=== PATIENT | female | born 1960 | race Caucasian/White ===

== ENCOUNTER → 2017-12-29 | Outpatient (CLI) | payer OTHER | LOC: M RAD 07:09 | DX: Z12.31 Encounter for screening mammogram for malignant neoplasm of breast (principal) | CPT/HCPCS: 77067 ==

== ENCOUNTER → 2018-04-23 | Outpatient (REF) | payer OTHER ==
[2018-04-23 16:45] LABS: FREE T4 0.94 NG/DL (0.76-1.46)
== END ==
LOC: M LAB REF 15:49
DX: E06.3 Autoimmune thyroiditis (principal)

== ENCOUNTER → 2019-01-26 | Outpatient (CLI) | payer OTHER ==
[~2019-01-26] MED LIST: ACET500C PO; CLAR5CHW OR; GLUC500T3 PO; IBUP400T PO; IBUP600T PO; POTA20TA2 OR; YAZ3TAB2 PO
--- NOTE | 2019-01-26 19:13 | REPMRS ---
Patient History The patient states she has not had a clinical breast exam in over a year. Family history of unknown cancer at age 74 in father, breast cancer at age 92 in paternal grandmother, breast cancer at age 38 in maternal cousin. Taking hormonal contraceptives for 3 years. Patient has but, is willing to pay for 3D. Digital Mammo Screening Bilat: January 26, 2019 - Exam #: [id number] Bilateral CC and MLO view(s) were taken. Technologist: Natasha Rice, Technologist Prior study comparison: December 29, 2017, bilateral digital mammo screening bilat performed at [facility]. June 13, 2016, bilateral digital mammo screening bilat performed at [facility]. February 06, 2014, bilateral bilat screen digital mammo, performed at [facility] ([facility]). FINDINGS: The breast tissue is heterogeneously dense. This may lower the sensitivity of mammography. There is a moderate amount of heterogeneously dense fibroglandular tissue which is fairly symmetric. There is no interval development of dominant mass, architectural distortion, or grouped microcalcification typical of malignancy. There has been no change in the appearance of the mammogram from the prior studies. 3-D tomosynthesis shows no additional findings. Assessment: BI-RADS/ACR category 1 mammogram. Negative Mammogram. Recommendation Routine screening mammogram of both breasts in 1 year (for women over age 40). This patient's Lifetime Breast Cancer RIsk is estimated at 10.2 %. This mammogram was interpreted with the aid of an FDA-approved computer-aided dectection system. Electronically Signed By: Tom Sherwood MD 01/26/19 308
== END ==
LOC: M RAD 12:45
PROVIDERS: ATTEND Internal Medicine
DX: Z12.31 Encounter for screening mammogram for malignant neoplasm of breast (principal); Z80.3 Family history of malignant neoplasm of breast

== ENCOUNTER → 2019-12-28 | Outpatient (CLI) | payer OTHER | LOC: EDSTATUS 10:30 → M LABSMTC 10:36 | PROVIDERS: ATTEND Pediatrics | DX: Z03.818 Encounter for observation for suspected exposure to other biological agents ruled out (principal); Z11.59 Encounter for screening for other viral diseases ==

== ENCOUNTER → 2020-03-19 | Outpatient (CLI) | payer OTHER | LOC: M LABSMTC 13:13 | PROVIDERS: ATTEND Pediatrics | DX: Z20.828 Contact with and (suspected) exposure to other viral communicable diseases (principal) ==

== ENCOUNTER 2020-06-11 09:38 | Outpatient (RCR) | payer SELFPAY | END 2020-06-14 | LOC: M LABSMTC 09:38 | PROVIDERS: ATTEND Pediatrics | DX: Z20.828 Contact with and (suspected) exposure to other viral communicable diseases (principal) ==

== ENCOUNTER → 2020-07-12 | Outpatient (CLI) | payer SELFPAY | LOC: M LABSMTC 09:34 | PROVIDERS: ATTEND Pediatrics | DX: Z20.822 Contact with and (suspected) exposure to COVID-19 (principal) ==

== ENCOUNTER → 2020-07-17 | Outpatient (CLI) | payer OTHER ==
[2020-07-17 15:06] LABS: BLOOD UREA NITROGEN 18 MG/DL (7-18); CALCIUM LEVEL 10.1 MG/DL (8.8-10.2); CARBON DIOXIDE LEVEL 32 MEQ/L (21-32); CHLORIDE LEVEL 102 MEQ/L (98-107); CREATININE FOR GFR 0.76 MG/DL (0.55-1.30); FREE T4 1.25 NG/DL (0.76-1.46); GLOMERULAR FILTRATION RATE > 60.0 (>45); GLUCOSE, FASTING 94 MG/DL (70-100); POTASSIUM SERUM 4.7 MEQ/L (3.5-5.1); SODIUM LEVEL 138 MEQ/L (136-145)
[2020-07-17 15:10] LABS: FOLATE 10.3 NG/ML (>5.4)
[2020-07-23 16:08] LABS: VITAMIN B1 LEVEL WHOLE BLOOD 101.9 nmol/L (66.5-200.0); VITAMIN E(ALPHA TOCOPHEROL) 10.8 mg/L (9.0-29.0); VITAMIN E(GAMMA TOCOPHEROL) 2.4 mg/L (0.5-4.9)
== END ==
LOC: M PLALAB 10:05
PROVIDERS: ATTEND Psychiatry & Neurology Neurology
DX: R26.81 Unsteadiness on feet (principal); E06.3 Autoimmune thyroiditis; L65.9 Nonscarring hair loss, unspecified

== ENCOUNTER → 2020-08-27 | Outpatient (CLI) | payer SELFPAY | LOC: M LABSMTC 09:30 | PROVIDERS: ATTEND Pediatrics | DX: Z20.822 Contact with and (suspected) exposure to COVID-19 (principal) ==

== ENCOUNTER → 2021-05-20 | Outpatient (REF) | LOC: M LABSMTC 09:22 | PROVIDERS: ATTEND Pediatrics | DX: Z20.822 Contact with and (suspected) exposure to COVID-19 (principal) ==

== ENCOUNTER → 2021-06-14 | Outpatient (REF) | LOC: M LABSMTC 13:28 | PROVIDERS: ATTEND Pediatrics | DX: Z20.828 Contact with and (suspected) exposure to other viral communicable diseases (principal) ==

== ENCOUNTER → 2023-03-25 | Outpatient (REF) | payer SELFPAY, OTHER, MEDICARE | LOC: M LAB REF 15:58 | PROVIDERS: ATTEND Ophthalmology | DX: D22.112 Melanocytic nevi of right lower eyelid, including canthus (principal) ==

== ENCOUNTER 2023-05-15 11:08 | Day surgery (SDC) | payer MEDICARE, OTHER ==
[~2023-05-15] VITALS: Ht 177.8 cm; Wt 86.5 kg
[~2023-05-15 11:08] MED LIST changes: +COLA100C5 PO; +FLUT50SP17 INH; +HYDR50TA70 PO; +MONT10TA97 PO; +PREM0.3T2 PO; +RA M500C PO; +SPIR50TA4 PO; +SYNT88TA2 PO
[2023-05-15] MEDS ORDERED: propofoL 200 MG/20 ML VIAL As Ordered ONE ×2 (13:01→13:10)
[2023-05-15] MEDS ORDERED: LIDOCAINE 2% 100MG/5ML SDV (FOR ANES.) As Ordered ONE (13:01)
[2023-05-15 13:26] VITALS: TEMP 97
[2023-05-15 13:40] VITALS: BP 103/58; O2SAT 100
== END 2023-05-15 13:51 | disposition home or self-care (01) ==
LOC: M OPP 11:08
PROVIDERS: ATTEND Internal Medicine Gastroenterology
DX: Z12.11 Encounter for screening for malignant neoplasm of colon (principal); K57.30 Diverticulosis of large intestine without perforation or abscess without bleeding; K64.8 Other hemorrhoids; K44.9 Diaphragmatic hernia without obstruction or gangrene; R12 Heartburn; Z87.891 Personal history of nicotine dependence; Z79.51 Long term (current) use of inhaled steroids; Z79.52 Long term (current) use of systemic steroids; Z79.890 Hormone replacement therapy; Z79.899 Other long term (current) drug therapy; Z88.6 Allergy status to analgesic agent
CPT/HCPCS: 43235; G0121

== ENCOUNTER → 2023-05-22 | Outpatient (CLI) | payer MEDICARE, OTHER ==
[~2023-05-22] MED LIST changes: -FLUT50SP17 INH; +FLUTISP INH
[2023-05-22 15:18] LABS: BASO # 0.1 10^3/uL (0.0-0.2); BASO % 0.9 % (0.0-1.0); EOS # 0.1 10^3/uL (0.0-0.5); EOS % 1.2 % (0.0-3.0); HEMATOCRIT 38.4 % (36.0-47.0); HEMOGLOBIN 12.4 g/dl (12.0-15.5); LYMPH # 2.5 10^3/uL (1.5-5.0); LYMPH % 43.5 % (24.0-44.0); MEAN CORPUSCULAR HEMOGLOBIN 29.8 pg (27.0-33.0); MEAN CORPUSCULAR HGB CONC 32.3 g/dl (32.0-36.5); MEAN CORPUSCULAR VOLUME 92.3 fl (80.0-96.0); MONO # 0.5 10^3/uL (0.0-0.8); MONO % 8.2 % (2.0-8.0); NEUTROPHILS # 2.7 10^3/uL (1.5-8.5); PLATELET COUNT, AUTOMATED 256 10^3/uL (150-450); RED BLOOD COUNT 4.16 10^6/uL (4.00-5.40); WHITE BLOOD COUNT 5.8 10^3/uL (4.0-10.0)
[2023-05-22 15:35] LABS: HEMOGLOBIN A1c 5.4 % (4.0-6.0)
[2023-05-22 15:44] LABS: ALBUMIN 4.1 G/DL (3.2-5.2); ALKALINE PHOSPHATASE 56 U/L (46-116); ALT/SGPT 39 U/L (7.0-40); AST/SGOT 27 U/L (<34); BILIRUBIN,TOTAL 0.6 MG/DL (0.3-1.2); BLOOD UREA NITROGEN 16 MG/DL (9-23); CALCIUM LEVEL 9.4 MG/DL (8.3-10.6); CARBON DIOXIDE LEVEL 28 MMOL/L (20-31); CHLORIDE LEVEL 105 MMOL/L (98-107); CREATININE FOR GFR 0.69 MG/DL (0.55-1.30); GLOMERULAR FILTRATION RATE > 60.0 (>45); GLUCOSE, FASTING 91 MG/DL (74-106); POTASSIUM SERUM 4.6 MMOL/L (3.5-5.1); SODIUM LEVEL 138 MMOL/L (136-145)
[2023-05-22 15:45] LABS: FOLATE 11.7 NG/ML (>5.4); THYROID STIMULATING HORMONE 1.972 uIU/ML (0.55-4.78)
[2023-05-22 15:46] LABS: FREE T4 1.43 NG/DL (0.89-1.76); VITAMIN B12 LEVEL 951 PG/ML (211-911)
== END ==
LOC: M PLALAB 10:59
PROVIDERS: ATTEND Psychiatry & Neurology Neurology
DX: E07.9 Disorder of thyroid, unspecified (principal); E53.8 Deficiency of other specified B group vitamins; G62.9 Polyneuropathy, unspecified; Z13.1 Encounter for screening for diabetes mellitus; Z79.899 Other long term (current) drug therapy

== ENCOUNTER → 2023-08-19 | Outpatient (CLI) | payer MEDICARE, OTHER | LOC: M RAD 15:02 | PROVIDERS: ATTEND Family Medicine | DX: D17.20 Benign lipomatous neoplasm of skin and subcutaneous tissue of unspecified limb (principal) ==

== ENCOUNTER → 2024-09-13 | Outpatient (REF) | payer MEDICARE, OTHER | LOC: M LAB REF 17:36 | PROVIDERS: ATTEND Internal Medicine Endocrinology, Diabetes & Metabolism | DX: E04.1 Nontoxic single thyroid nodule (principal); R89.6 Abnormal cytological findings in specimens from other organs, systems and tissues ==

== ENCOUNTER → 2024-10-10 | Outpatient (CLI) | payer MEDICARE, OTHER ==
[~2024-10-10] MED LIST changes: +E-Z-GAS II EFFERVESCENT PACKET (SODIUM BICARB./CITRIC ACID/SIMETHICONE) As Ordered ONE; +E-Z-HD 98% w/w 340GM SUSP BTL As Ordered ONE; +E-Z-PAQUE 96% w/w SUSP 176GM BTL As Ordered ONE
== END ==
LOC: M RAD 08:27
PROVIDERS: ATTEND Otolaryngology
DX: R13.10 Dysphagia, unspecified (principal)

== ENCOUNTER → 2024-11-01 | Outpatient (CLI) | payer MEDICARE, OTHER ==
[~2024-11-01] MED LIST changes: -E-Z-GAS II EFFERVESCENT PACKET (SODIUM BICARB./CITRIC ACID/SIMETHICONE) As Ordered ONE; -E-Z-HD 98% w/w 340GM SUSP BTL As Ordered ONE; -E-Z-PAQUE 96% w/w SUSP 176GM BTL As Ordered ONE; +ISOVUE-370 76% 100ML VIAL As Ordered ONE
== END ==
LOC: M RAD 08:16
PROVIDERS: ATTEND Otolaryngology
DX: R49.0 Dysphonia (principal)
CPT/HCPCS: 70491; Q9967